=== PATIENT | female | born 1975 | race Caucasian/White ===

== ENCOUNTER 2025-04-05 08:24 | Emergency (ER) | payer BC ==
[~2025-04-05] VITALS: Ht 170.2 cm; Wt 88.6 kg
[2025-04-05 08:41] VITALS: TEMP 96.7
--- NOTE | 2025-04-05 10:29 | Physician Documentation ---
History of Present Illness ~ General Chief Complaint: Back Pain Stated Complaint: BACK PAIN Time Seen by MD: 10:01 Primary Medical Doctor: Wes Otto Source: patient Mode of Arrival: POV Exam Limitations: no limitations History of Present Illness Initial Comments 49-year-old female with chronic back pain accompanied by muscle spasms does take tizanidine at home states that the past few days she has had increased muscle spasms tizanidine has helped but not as well. Patient currently taking Mounjaro was concerned for potential kidney issue due to Mounjaro. Patient denies any history of kidney stones or renal issues. No lack of bowel or bladder control. No obvious injuries or recent falls. Medication Reconciliation Allergies: Coded Allergies: No Known Allergies (Unverified , 04/05/25) Past Medical History Past Medical History: Diabetes, *MUSCULOSKELETAL*, Chronic Pain, Chronic Back Pain Past Surgical History: noncontributory Alcohol Use: None Lives In: Home Occupation: disabled Review of Systems All Other Systems at this time: Reviewed and Negative Musculoskeletal: Reports: see HPI Physical Exam Physical Exam Vital Signs: RN Vital Signs have been reviewed: Yes, Temperature: 96.7, Heart Rate: 66, Respiratory Rate: 19, BP: 135/88, Pulse Oximetry: 96, Weight: 88.640 Oxygen Flow Rate: 0 Physical Exam General: Alert, no apparent distress. HEENT: moist mucous membranes. Neck: Full range of motion. Respiratory: No respiratory distress speaking in full sentences Chest: No accessory muscle use. Cardiovascular: Appears well perfused Spine: No spinal process tenderness deformities including step-offs or edema paraspinal muscle tenderness and spasm to the right lumbar paraspinal muscles no SI joint tenderness Neurologic: Oriented x4. Psychiatric: Normal mood and affect. Skin: Normal color, warm and dry. No edema, no ecchymosis. Progress Results/Orders Results/Orders Orders - ABRIL ZHANG NP Ketorolac Trometh 30mg/Ml Vial (Toradol (04/05/25 10:25) Lidocaine 5% Patch (Lidoderm 5% Patch) (04/05/25 10:22) Vital Signs 04/05/25 04/05/25 08:41 10:05 Temp 96.7 Pulse 72 66 Resp 16 19 B/P (MAP) 153/90 135/88 (104) Pulse Ox 99 96 O2 Flow Rate 0 Medical Decision Making Additional information obtaine: N/A Findings No obvious CVA tenderness except muscle spasm and rigidity. No suprapubic tenderness to indicate bladder infection or kidney infection. Patient's pain is reduced with tizanidine we will prescribe Flexeril for follow up with primary care. Differential Diagnosis Chronic back pain, muscle spasm, pyelo, kidney stone, acute injury or differentials at this time Departure Time of Disposition: 10:30 Disposition: 01 HOME / SELF CARE / HOMELESS Impression: Primary Impression: Strain of lumbar region Additional Impression: Chronic back pain Condition: Stable Discharge Instructions: Chronic Back Pain Additional Instructions: Do not take tizanidine and Flexeril follow up with primary care for further treatment and evaluation Referrals: NO PRIMARY CARE PROVIDER (PCP) Prescriptions Cyclobenzaprine* (Cyclobenzaprine*) 10 Mg Tablet 1 TAB PO Q8H for muscle spasms for 10 Days, #30 TAB 0 Refills Prov: ABRIL ZHANG NP 04/05/25 Education Educated: Patient Educated regarding: diagnosis, treatment, need for follow up Signature Scribe Signature: No scribe Attestation: The note accurately reflects work and decisions made by me.Abril HOFF 04/05/25 10:35 ABRIL ZHANG NP Apr 05, 2025 10:29
[2025-04-05] MEDS: ketorolac trometh 30MG/ML vial 30 MG/ML VIAL IM ONE (10:35)
[2025-04-05] MEDS ORDERED: CYCL-1 PO (10:35)
[2025-04-05 10:37] VITALS: BP 128/75; PULSE 75; RESP 20; O2SAT 97
== END 2025-04-05 10:49 | disposition home or self-care (01) ==
LOC: ER 08:26
DX: S39.012A Strain of muscle, fascia and tendon of lower back, initial encounter (principal); G89.29 Other chronic pain; E11.9 Type 2 diabetes mellitus without complications; X58.XXXA Exposure to other specified factors, initial encounter; Y93.89 Activity, other specified; Y92.89 Other specified places as the place of occurrence of the external cause; Y99.8 Other external cause status
CPT/HCPCS: 96372; 99283; J1885